=== PATIENT | male | born 1965 | race Caucasian/White ===

== ENCOUNTER → 2020-03-05 13:25 | Outpatient (BNVA) | payer OTHER, SELFPAY | PROVIDERS: PCP Nurse Practitioner; Visit Provider Internal Medicine | DX: K22.4 Dyskinesia of esophagus (principal); Z20.828 Contact with and (suspected) exposure to other viral communicable diseases; Z11.59 Encounter for screening for other viral diseases | CPT/HCPCS: 87635 ==

== ENCOUNTER 2020-03-09 08:50 | Day surgery (SDC) | payer SELFPAY ==
[2020-03-05 13:32] VITALS: BMI 25.7
[2020-03-09 09:07] VITALS: BP 126/89; PULSE 58; RESP 18; TEMP 36.5; O2SAT 97
--- NOTE | 2020-03-09 09:28 | P.ANESASSM_ITS ---
Pre-Anesthetic Assessment Pre-Anesthetic Assessment: Height/Weight: Height 1.83 m Weight 86.183 kg Temp Pulse Resp BP Pulse Ox 97.7 F 58 L 18 126/89 97 03/09/20 09:07 03/09/20 09:07 03/09/20 09:07 03/09/20 09:07 03/09/20 09:07 Preop Diagnosis: esophageal spasm Proposed Procedure: Operation Date: 03/09/20 10:15 Proposed Procedures p EGD 85443 K22.4(Not Applicable) - William Quiroz MD Familial anesthetic complications: none Was Beta Dalia taken within 24 hours: N/A Last intake: Intake Last Liquid Date 03/08/20 Last Liquid Time 20:00 Last Solid Date 03/08/20 Last Solid Time 20:00 Social: Social History: No alcohol and No tobacco Exam: Pre-Anes Outpt Exam: alert, oriented x 3, clear to auscultation bilaterally and regular rate & rhythm Airway: Cervical ROM: WNL MP: 2 Dentition: Full Anesthetic Plan: ASA status: 1 Anesthesia: MAC Risk of > 500 ml blood loss (7ml/kg in children): No PFSH Anesthesia PFSH: Medical History Diverticulosis History of colon polyps Internal hemorrhoids Surgical History History of ankle surgery Left History of appendectomy Several surgeries after due to complications. History of circumcision History of colonoscopy (06/09/19) Repeat in 5 years 06/09/19 History of foot surgery Bilateral Family History Other Diabetes Denies family history of Anesthesia complication Bleeding disorder Social History Smoking and tobacco status: former smoker Alcohol intake: current Alcohol intake frequency: holidays/special occasions o nly Adopted: No Lives independently: Yes Household members: none Housing: House Marital status: / Number of children: 7 Highest education level completed: High School Graduate service: No Current occupational status: employed Pets and animals: Yes History of recent travel: No Current gender identity: Male Data Anesthesia Cardiac Studies: No Data to Display
--- NOTE | 2020-03-09 10:25 | W.PM.OPSUD ---
Surgery/Procedure H&P Update DATE OF PROCEDURE: March 09, 2020 DATE H&P PERFORMED: 02/19/20 H&P UPDATE INFORMATION: I have reviewed H&P completed within last 30 days, I have examined patient prior to procedure and No changes to prior documentation PREOP DIAGNOSIS: esophageal spasm PLANNED PROCEDURE: Operation Date: 03/09/20 10:15 Proposed Procedures p EGD 62958 K22.4(Not Applicable) - William Quiroz MD
[2020-03-09 10:44] VITALS: BP 119/74; PULSE 67; RESP 16; TEMP 36.3; O2SAT 98
--- NOTE | 2020-03-09 10:55 | ANE.PACU2 ---
Inpatient post-anesthesia follow up: Airway intact: Yes Vital signs: Temperature 97.3 F Pulse Rate 67 Respiratory Rate 16 Blood Pressure 119/74 Pulse Oximetry 98 Oxygen Delivery Me thod Nasal Cannula Oxygen Flow Rate 2 Fraction of Inspir ed Oxygen Hydration adequate: Yes Nausea and vomiting: No Mental status: Baseline
[2020-03-09 10:59] VITALS: BP 112/68; PULSE 69; RESP 16; O2SAT 96
[2020-03-09] MEDS: sodium chloride 0.9% 1,000 ML 30 ML IV (11:00)
== END 2020-03-09 11:20 | disposition home or self-care (01) ==
PROVIDERS: PCP Nurse Practitioner; Visit Provider Surgery
PROC: 0DJ08ZZ Inspection of Upper Intestinal Tract, Via Natural or Artificial Opening Endoscopic (ICD-10-PCS; CPT 43235; principal; 2020-03-09 10:15)
DX: K22.4 Dyskinesia of esophagus (principal); K20.9 Esophagitis, unspecified; Z87.891 Personal history of nicotine dependence; K44.9 Diaphragmatic hernia without obstruction or gangrene
CPT/HCPCS: 12345; 43239; 88305; J2704; J7030

== ENCOUNTER → 2020-04-13 10:51 | Outpatient (BNVA) | payer SELFPAY | PROVIDERS: PCP Family Medicine; Visit Provider Specialist | DX: G56.02 Carpal tunnel syndrome, left upper limb (principal); R20.0 Anesthesia of skin; R20.2 Paresthesia of skin | CPT/HCPCS: 95910 ==

== ENCOUNTER → 2020-10-14 09:15 | Outpatient (BNVA) | payer SELFPAY | PROVIDERS: PCP Family Medicine; Visit Provider Nurse Practitioner Family | DX: J02.9 Acute pharyngitis, unspecified (principal) | CPT/HCPCS: 87070; 87880 ==

== ENCOUNTER → 2021-10-06 11:39 | Outpatient (BNVA) | payer SELFPAY | PROVIDERS: PCP Family Medicine; Visit Provider Family Medicine | DX: M25.511 Pain in right shoulder (principal) | CPT/HCPCS: 73030 ==

== ENCOUNTER 2022-03-16 06:00 | Outpatient (RCR) | payer SELFPAY | END 2022-04-07 23:59 | disposition home or self-care (01) | LOC: SPT 06:00 | PROVIDERS: PCP Family Medicine; Visit Provider Family Medicine | DX: M25.511 Pain in right shoulder (principal) | CPT/HCPCS: 97110; 97161 ==

== ENCOUNTER 2022-04-08 06:00 | Outpatient (RCR) | payer SELFPAY | END 2022-05-08 23:59 | disposition home or self-care (01) | LOC: SPT 06:00 | PROVIDERS: PCP Family Medicine; Visit Provider Family Medicine | DX: M25.511 Pain in right shoulder (principal) | CPT/HCPCS: 97110 ==

== ENCOUNTER → 2023-11-02 10:39 | Outpatient (BNVA) | payer MEDICAID, SELFPAY | PROVIDERS: PCP Family Medicine; Visit Provider Family Medicine | DX: R03.0 Elevated blood-pressure reading, without diagnosis of hypertension (principal); M17.10 Unilateral primary osteoarthritis, unspecified knee; G56.03 Carpal tunnel syndrome, bilateral upper limbs | CPT/HCPCS: 80053; 80061; 84439; 84443; 85025 ==

== ENCOUNTER 2024-02-26 19:34 | Emergency (ER) | payer MEDICAID, SELFPAY ==
[2024-02-26 19:39] VITALS: BP 133/84; PULSE 85; RESP 18; TEMP 36.8; O2SAT 97; BMI 22.5
--- NOTE | 2024-02-26 19:52 | XRR_ITS ---
PROCEDURE INFORMATION: Exam: XR Left Knee Exam date and time: 02/26/2024 8:28 PM Age: 59 years old Clinical indication: Swelling, leg or foot; Additional info: Pain/swelling TECHNIQUE: Imaging protocol: Radiologic exam of the left knee. Views: 3 views. COMPARISON: No relevant prior studies available. FINDINGS: Bones/joints: Alignment is normal. Femorotibial joint spaces are preserved. No acute fracture. Moderate patellofemoral osteophytes. No visible joint effusion. Soft tissues: Prepatellar soft tissue edema. XR/XR knee LT 3V* [id number] IMPRESSION: 1. No acute osseous findings. 2. Nonspecific prepatellar soft tissue edema. Prepatellar bursitis not excluded.
[2024-02-26] MEDS: HYDROcodone-acetaminophen 7.5-325 mg Tablet 1 TAB PO (20:37)
[2024-02-26 20:53] LABS: Erythrocyte Sedimentation Rate 2 mm/hr (0-10)
[2024-02-26 20:54] LABS: Basophils % 0.6 %; Eosinophils # 0.1 10^3/uL (0.0-0.8); Eosinophils % 1.4 %; Hematocrit 42.6 % (37-53); Lymphocytes # 1.1 10^3/uL (0.8-4.8); Lymphocytes % 17.8 %; Mean Corpuscular HGB Conc 33.3 g/dL (30-55); Mean Corpuscular Hemoglobin 30.4 pg (27-33); Mean Corpuscular Volume 91.2 fl (82-101); Mean Platelet Volume 8.7 fL (7.4-10.4); Monocytes # 0.7 10^3/uL (0.2-0.9); Monocytes % 10.4 %; Neutrophils # 4.33 10^3/uL (1.8-7.7); Neutrophils % 69.6 %; Nucleated Red Blood Cells % 0 %; Platelet Count 251 10^3/cmm (157-399); Red Blood Count 4.67 10^6/uL (3.85-5.65); Red Cell Distribution Width 12.6 % (12.1-15.1); White Blood Count 6.23 10^3/uL (3.29-11.43)
[2024-02-26 21:11] LABS: Alanine Aminotransferase 21 U/L (0-41); Albumin Level 4.6 g/dL (3.5-5.2); Alkaline Phosphatase 65 U/L (40-130); Anion Gap 11.4 (5-19); Aspartate Amino Transferase 18 U/L (0-40); Blood Urea Nitrogen 12 mg/dL (6-20); C Reactive Protein 10.1 mg/L (0.0-4.9); Calcium 9.7 mg/dL (8.5-10.5); Carbon Dioxide 31 mmol/L (22-29); Chloride 99 mmol/L (98-107); Glomerular Filtration Rate 138.4 mL/min (90-130); Glucose 97 mg/dL (65-115); Lactic Sepsis W/Reflex 0.8 mmol/L (0.5-2.2); Osmolality Calculated 284 mOsm/kg (285-295); Potassium 4.4 mmol/L (3.5-5.1); Sodium 137 mmol/L (136-145); Total Bilirubin 0.5 mg/dL (0.15-1.2); Total Protein 7.6 g/dL (6.6-8.7)
[2024-02-26 22:07] VITALS: BP 139/79; PULSE 81; RESP 16; O2SAT 98
[2024-02-26] MEDS: dexamethasone 10 mg/mL INJ IM (22:08)
--- NOTE | 2024-02-26 23:11 | ED_ITS ---
HPI - Extremity Problem 2 General: Chief complaint: Extremity Injury, Lower Stated complaint: Left knee swelling Time Seen by Provider: 02/26/24 19:45 Source: patient Mode of arrival: ambulatory Limitations: no limitations History of Present Illness: Patient is a 59-year-old male who presents the emergency department complaining of left knee swelling and pain for the past 3 to 4 days. Patient states he has been on his knees a lot for the past few days cleaning his house, and notes steadily increasing symptoms, but was concerned that it is just his left knee and on his right. He states that there are no specific alleviating factors, and it does not necessarily worse with walking but does seem to be worse at the end of the day. He has been taking meloxicam and ibuprofen, not much relief here. Has not tried any ice or other [id number] remedies. No history of previous. He is not reporting any fevers, nausea vomiting, or other systemic signs of illness. He does note the need to be slightly warm to the touch. MD Complaint: joint swelling and joint pain Onset (ago): day(s) Pain Consistency: constant Location: left and knee Radiation: none Relieving factors: nothing Exacerbating factors: nothing Associated symptoms: Reports no associated symptoms; Deny chest pain, fever(s) or rash Related Data Previous Rx's Medication Instructions Recorded fluticasone propionate 50 2 spray intranasal DAILY #16 grams 11/02/23 mcg/actuation nasal spray,suspension (Flonase Allergy Relief) meloxicam 15 mg tablet 15 mg PO DAILY #60 tabs 11/02/23 prednisone 20 mg tablet 60 mg (3 x 20 mg) PO ONCE 5 days 02/26/24 #15 tabs Allergies Allergy/AdvReac Type Severity Reaction Status Date / Time No Known Allergies Allergy Verified 11/02/23 10:04 Review of Systems 2 General: Reports: 10 or more systems reviewed and unremarkable except in HPI and below Const: Denies: fever(s) or chills Card: Denies: chest pain Resp: Denies: dyspnea or productive cough GI: Denies: abdominal pain, nausea, vomiting or diarrhea : Denies: flank pain Musc: Reports: joint pain, joint swelling and joint warmth; Denies: neck pain, back pain, extremity pain, extremity swelling, joint redness, limited range of motion or muscle weakness Skin/Breast: Denies: rash Neuro: Denies: headache(s), numbness in extremities or weakness in extremities PFSH ED 2 PFSH: Medical History Diverticulosis Internal hemorrhoids History of colon polyps Surgical History H/O esophagogastroduodenoscopy (03/09/20) Grade C esophagitis History of ankle surgery Left History of foot surgery Bilateral History of appendectomy Several surgeries after due to complications. History of circumcision History of colonoscopy (06/09/19) Repeat in 5 years 06/09/19 Family History Other Diabetes Denies family history of Anesthesia complication Bleeding disorder Social History Smoking and tobacco/nicotine status: former use of tobacco/nicotine (1PPD x4- 5yrs. quit 1994) Alcohol intake: current Alcohol intake frequency: holidays/special occasions only Substance/Drug Use: never Adopted: No Lives independently: Yes Household members: none Housing: House Marital status: / Number of children: 7 Highest education level completed: High School Graduate service: No Current occupational status: employed Pets and animals: Yes Current gender identity: Male Physical Exam 2 Const: COMMON NORMALS: no acute distress, patient oriented x3, no limitations, healthy appearing, alert and well nourished HENMT: COMMON NORMALS: normocephalic and atraumatic HEAD & SCALP: n ormocephalic and atraumatic Neck/C-Spine: COMMON NORMALS: full ROM, supple and no meningeal signs Resp: COMMON NORMALS: normal respiratory effort, No use of accessory muscles and clear to auscultation bilaterally AUSCULTATION: clear to auscultation bilaterally Cardio: COMMON NORMALS: regular rate and regular rhythm RATE: regular rate RHYTHM: regular rhythm Extremity: COMMON NORMALS: full ROM, capillary refill normal, no joint enlargement and no clubbing, cyanosis or edema NARRATIVE EXTREMITY EXAM: Left knee joint does appear moderately swollen, worse on the medial aspect. Is slightly warm to the touch. No palpable joint effusion at this time but there is tender to palpation diffusely. No joint laxity noted. Pain with extension of the knee. Neuro: COMMON NORMALS: patient oriented x3, moves all extremities, no focal motor deficits and no sensory deficits noted SENSORIUM/ORIENTATION: Yes alert MENINGEAL SIGNS: Yes no meningeal signs Skin: COMMON NORMALS: no rashes or lesions noted GENERAL SKIN EXAM: no rashes or lesions noted Course 2 Vital Signs: Vital signs: Vital Signs Temperature 98.2 F 02/26/24 19:39 Pulse Rate 81 02/26/24 22:07 Respiratory Rate 16 02/26/24 22:07 Blood Pressure 139/79 02/26/24 22:07 Pulse Oximetry 98 02/26/24 22:07 Oxygen Delivery Me thod Room Air 02/26/24 19:39 MDM - Extremity (Nontraumatic) Medical Decision Making Patient arrived with a left knee pain and swelling as well as some warmth over the past few days. Has had direct trauma/contact with both knees while cleaning house recently. His vitals were stable on arrival noted to be afebrile. He had no reports of systemic illness, and though the joint did feel somewhat warm on exam was not overtly hot to the touch and I was not suspicious of a septic joint. I did order an x-ray and labs. The labs were all unremarkable specifically a normal CRP, ESR, lactate, and no leukocytosis. His x-ray did comment on some soft tissue edema that could resemble a prepatellar bursitis, and clinically this does appear to be a bursitis also based on the history he gave me. He is given Jewett here and upon recheck states his pain was a 0. I had conversation with him in regards to reasons to return such that if he does have any systemic illness signs or symptoms to return immediately for further evaluation. At this time I do think it is a simple bursitis and we will treat with steroids and have him follow-up with primary care for reevaluation later this week. He will continue taking meloxicam, wearing compression devices, and elevate and ice the extremity. Patient discharged home at this time. Lab Data 02/26/24 20:48 02/26/24 20:48 Radiology Impressions Knee X-Ray 02/26/24 19:52 IMPRESSION: 1. No acute osseous findings. 2. Nonspecific prepatellar soft tissue edema. Prepatellar bursitis not excluded. Laboratory Results WBC 6.23 10^3/uL (3.29-11.43) 02/26/24 20:48 RBC 4.67 10^6/uL (3.85-5.65) 02/26/24 20:48 Hgb 14.20 g/dL (11.27-16.99) 02/26/24 20:48 Hct 42.6 % (37-53) 02/26/24 20:48 MCV 91.2 fl (82-101) 02/26/24 20:48 MCH 30.4 pg (27-33) 02/26/24 20:48 MCHC 33.3 g/dL (30-55) 02/26/24 20:48 RDW 12.6 % (12.1-15.1) 02/26/24 20:48 Plt Count 251 10^3/cmm (157-399) 02/26/24 20:48 MPV 8.7 fL (7.4-10.4) 02/26/24 20:48 Neut % (Auto) 69.6 % 02/26/24 20:48 Lymph % (Auto) 17.8 % 02/26/24 20:48 Davis % (Auto) 10.4 % 02/26/24 20:48 Eos % (Auto) 1.4 % 02/26/24 20:48 Baso % (Auto) 0.6 % 02/26/24 20:48 Neut # (Auto) 4.33 10^3/uL (1.8-7.7) 02/26/24 20:48 Lymph # (Auto) 1.1 10^3/uL (0.8-4.8) 02/26/24 20:48 Davis # (Auto) 0.7 10^3/uL (0.2-0.9) 02/26/24 20:48 Eos # (Auto) 0.1 10^3/uL (0.0-0.8) 02/26/24 20:48 Baso # (Auto) 0.0 10^3/uL (0.0-0.1) 02/26/24 20:48 Nucleated RBC % (auto) 0 % 02/26/24 20:48 Nucleated RBCs # 0.0 /100WBC 02/26/24 20:48 ESR 2 mm/hr (0-10) 02/26/24 20:48 Sodium 137 mmol/L (136-145) 02/26/24 20:48 Potassium 4.4 mmol/L (3.5-5.1) 02/26/24 20:48 Chloride 99 mmol/L (98-107) 02/26/24 20:48 Carbon Dioxide 31 mmol/L (22-29) H 02/26/24 20:48 Anion Gap 11.4 (5-19) 02/26/24 20:48 BUN 12 mg/dL (6-20) 02/26/24 20:48 Creatinine 0.6 mg/dL (0.7-1.2) L 02/26/24 20:48 GFR Calculation 138.4 mL/min (90-130) H 02/26/24 20:48 Glucose 97 mg/dL (65-115) 02/26/24 20:48 Calculated Osmolality 284 mOsm/kg (285-295) L 02/26/24 20:48 Lactic Acid 0.8 mmol/L (0.5-2.2) 02/26/24 20:48 Calcium 9.7 mg/dL (8.5-10.5) 02/26/24 20:48 Total Bilirubin 0.5 mg/dL (0.15-1.2) 02/26/24 20:48 AST 18 U/L (0-40) 02/26/24 20:48 ALT 21 U/L (0-41) 02/26/24 20:48 Alkaline Phosphatase 65 U/L (40-130) 02/26/24 20:48 C-Reactive Protein 10.1 mg/L (0.0-4.9) H 02/26/24 20:48 Total Protein 7.6 g/dL (6.6-8.7) 02/26/24 20:48 Albumin 4.6 g/dL (3.5-5.2) 02/26/24 20:48 Globulin 3.0 g/dL (1.3-4.6) 02/26/24 20:48 All radiology interpretation(s) finalized by discharge Discharge Plan Discharge Patient Disposition: Home Clinical Impression: Bursitis Condition: Stable Prescriptions: New prednisone 20 mg tablet 60 mg PO ONCE 5 Days Qty: 15 0RF No Action meloxicam 15 mg tablet 15 mg PO DAILY Qty: 60 1RF fluticasone propionate [Flonase Allergy Relief] 50 mcg/actuation spray,suspension 2 spray intranasal DAILY Qty: 16 0RF Rx Instructions: administer into each nostril Discharge Orders: Discharge ED (Routine); Ordered 02/26/24 Ordered By: Favian Hartman Referrals: Bobby Mccall MD [Primary Care Provider] - Discharge Diet: Usual diet Discharge Activity: Limit activity as instructed Patient Instructions: Knee Bursitis (ED) Activity Restrictions/Additional Instructions: Steroids. Please return to the emergency department immediately if you develop any fevers or significant nausea and vomiting. Avoid direct contact and apply compression device for the swelling. Ice to the area. Follow-up with primary care as needed. Coding Level of Care Code ED [employer] Rec[employer]iter for [facility]
== END 2024-02-26 22:08 | disposition home or self-care (01) ==
PROVIDERS: Emergency Provider Physician Assistant; PCP Family Medicine
DX: M71.9 Bursopathy, unspecified (principal); Z87.891 Personal history of nicotine dependence
CPT/HCPCS: 36415; 73562; 80053; 83605; 85025; 85651; 86140; 96372; 99284; J1100

== ENCOUNTER 2024-07-11 11:00 | Outpatient (CLI) | payer MEDICAID, SELFPAY ==
--- NOTE | 2024-07-11 11:00 | CT_ITS ---
WS: [id number] CT ABDOMEN AND PELVIS NONCONTRAST HISTORY: adhesions, RLQ pain. hx of appendectomy TECHNIQUE: Imaging performed through the abdomen and pelvis. Coronal and sagittal reformats are submi tted. All CT scans at [facility] use at least one of these dose optimization techniques: auto mated exposure control; mA and/or kV adjustment per patient size (includes targeted exams where dose is matched to clinical indication); or iterative reconstruction. DLP: 303.36 mGy.cm COMPARISON: None available. Lower thorax: Lung bases are clear. Visualized heart is normal. No hiatal hernia. Liver: Normal size liver. No mass or bile duct dilatation. Gallbladder: Normal gallbladder. No pericholecystic fluid or cholelithiasis. No gallbladder wall thic kening. Pancreas: Normal size and attenuation. Normal pancreatic duct. No pancreatitis or mass. Spleen: Normal size spleen with granulomata. Adrenal glands: Normal. No mass. Right kidney: Normal size kidney. Exophytic cyst from the lower pole measures 4.3 x 3.8 cm. There is a smaller exophytic low-attenuation nodule from the posterior upper pole measuring 10 x 9 mm which is too small to characterize. No renal calcifications or obstruction. Left kidney: Normal size kidney with no mass or hydronephrosis. Aorta: Normal abdominal aorta, no aneurysm or atherosclerosis. No free fluid, intraperitoneal air or significant lymphadenopathy. GI tract: Normal stomach and small bowel. No obstruction. Mild constipation. Prior appendectomy. No c olonic wall thickening. Moderate distal colonic diverticular burden without acute diverticulitis. Abdominal wall: Negative. No hernia. Pelvis: Well-distended urinary bladder. No free fluid or adenopathy. Osseous structures: Unremarkable. CT/CT abdomen pelvis wo con [id number] IMPRESSION: 1. No acute abdominal or pelvic abnormalities. 2. No GI tract obstruction. 3. Moderate sigmoid colon diverticula without acute diverticulitis. 4. Lower pole RIGHT renal cyst measures 4.3 x 3.9 cm. Too small to characteriz e low-attenuation nodule from the superior pole.
== END 2024-07-11 11:07 | disposition home or self-care (01) ==
PROVIDERS: PCP Family Medicine; Visit Provider Family Medicine
DX: K57.90 Diverticulosis of intestine, part unspecified, without perforation or abscess without bleeding (principal); N28.1 Cyst of kidney, acquired; R10.9 Unspecified abdominal pain
CPT/HCPCS: 74176

== ENCOUNTER → 2024-09-10 09:09 | Outpatient (BNVA) | payer MEDICAID, SELFPAY | PROVIDERS: PCP Family Medicine; Visit Provider Nurse Practitioner | DX: G56.03 Carpal tunnel syndrome, bilateral upper limbs (principal) | CPT/HCPCS: 73130 ==

== ENCOUNTER 2024-09-23 05:53 | Day surgery (SDC) | payer MEDICAID, SELFPAY ==
[2024-09-23] VITALS (11 sets, daily range): BP systolic 96–127; BP diastolic 64–101; PULSE 64–81; RESP 11–18; TEMP 36.2–37.1; O2SAT 92–99; BMI 22.5
[2024-09-23] MEDS: sodium chloride 0.9% 1,000 ML 30 ML IV (06:36)
[2024-09-23] MEDS: acetaminophen 1,000 MG/100 ML PIGGYBACK 400 MG IV (06:36)
[2024-09-23] MEDS: CELEcoxib 200 mg Capsule 400 MG PO (06:43)
[2024-09-23] MEDS: gabapentin 300 mg Capsule PO (06:44)
--- NOTE | 2024-09-23 06:44 | ANES.PREANE2 ---
Pre-Anesthetic Assessment Height/Weight: Height 1.83 m Weight 75.296 kg Temp Pulse Resp BP Pulse Ox O2 Del Method 97.6 F 64 17 127/101 97 Room Air 09/23/24 06:15 09/23/24 06:15 09/23/24 06:15 09/23/24 06:15 09/23/24 06:15 09/23/24 06:15 Operation Date: 09/23/24 07:00 Proposed Procedures p Carpal Tunnel Release(Left) - Swapna Valdez MD Familial anesthetic complications: None Was Beta Dalia taken within 24 hours: N/A Was Clonidine taken within 24 hours: N/A Last intake: Intake Last Liquid Date 09/22/24 Last Liquid Time 23:20 Last Solid Date 09/22/24 Last Solid Time 23:00 Social No alcohol and No tobacco Exam alert, oriented x 3, clear to auscultation bilaterally and regular rate & rhythm Airway Mallampati: Class I Dentition: other (missing teeth) Anesthetic Plan ASA status: 1 Anesthesia: General Risk of > 500 ml blood loss (7ml/kg in children): No Medications/Allergies Home Medications ?Medication ?Instructions ?Recorded ?Confirmed ?Last Taken ?Type meloxicam 15 mg tablet 15 mg PO DAILY #90 tabs 05/16/24 09/22/24 09/14/24 Rx fluticasone propionate 50 2 spray intranasal DAILY #16 grams 06/30/24 09/22/24 09/21/24 Rx mcg/actuation nasal spray,suspension (Flonase Allergy Relief) gabapentin 300 mg capsule 300 mg PO DAILY #30 caps 09/01/24 09/22/24 09/22/24 Rx Allergies Allergy/AdvReac Type Severity Reaction Status Date / Time No Known Allergies Allergy Verified 09/10/24 09:26 Current Medications Generic Name Dose Route Start Last Admin Trade Name Freq PRN Reason Stop Dose Admin Sodium Chloride 1,000 mls @ 30 mls/hr 09/23/24 06:15 09/23/24 06:36 Sodium Chloride 0.9% IV 09/24/24 06:14 30 mls/hr .Q24H VICKY Administration PFSH Anesthesia Medical History Tinnitus Diverticulosis Internal hemorrhoids History of colon polyps Surgical History H/O esophagogastroduodenoscopy (03/09/20) Grade C esophagitis History of ankle surgery Left History of foot surgery Bilateral History of appendectomy Several surgeries after due to complications. History of circumcision History of colonoscopy (06/09/19) Repeat in 5 years 06/09/19 Family History Other Diabetes Denies family history of Anesthesia complication Bleeding disorder Social History Smoking and tobacco/nicotine status: unknown if used tobacco/nicotine Alcohol intake: current Alcohol intake frequency: holidays/special occasions only Substance/Drug Use: never Adopted: No Lives independently: Yes Household members: none Housing: House Marital status: / Number of children: 7 Highest education level completed: High School Graduate service: No Current occupational status: employed Pets and animals: Yes Current gender identity: Male Data Anesthesia Cardiac Studies: No Data to Display
--- NOTE | 2024-09-23 07:00 | W.PM.OPSUD ---
Surgery/Procedure H&P Update DATE OF PROCEDURE: September 23, 2024 DATE H&P PERFORMED: 09/10/24 H&P UPDATE INFORMATION: I have reviewed H&P completed within last 30 days, I have examined patient prior to procedure, No changes to prior documentation and H&P is in [facility] [place] [place] EMR on date indicated PREOP DIAGNOSIS: Left Carpal Tunnel Syndrome PLANNED PROCEDURE: Operation Date: 09/23/24 07:00 Proposed Procedures p Carpal Tunnel Release(Left) - Swapna Valdez MD Related Problem List Diagnoses (1) Carpal tunnel syndrome of left wrist:
[2024-09-23] MEDS: ceFAZolin 2,000 mg SDV 2000 MG IVP (07:01)
[2024-09-23] MEDS: BUPivacaine 0.5% INJ 30 mL XX (07:45)
--- NOTE | 2024-09-23 08:05 | PM.OP ---
Operative Report Date of procedure: September 23, 2024 Pre-op diagnosis: Left carpal tunnel syndrome Post-op diagnosis: Left carpal tunnel syndrome Post-op findings: Severe compression across the carpal canal Procedure done: Left carpal tunnel release Implants: None Specimens removed/disposition: None Pathology: None Surgeon: Swapna Valdez MD Bookkeeping Service Sales Agent: None Anesthesia: General (Per LMA, ASA 1) Estimated blood loss (mL): 2 Tourniquet time (min): 19 ( at 250 mmHg) IV fluids (mL): 600 Urine output (mL): 0 (No Vicente) Complications: None Findings: Severe compression across the carpal canal Condition: stable Disposition: PACU (Then return to same-day surgery for discharge to home) Brief History: This 59-year-old gentleman presented to the clinic with complaints of bilateral carpal tunnel syndrome. He had had symptoms for the past few years. He had bilateral upper extremity nerve conduction study prior to his appointment. There was moderately severe entrapment of the left median nerve at the wrist and possible mild entrapment of the right median nerve at the wrist. Ulnar nerves were noted to be normal. After discussion in the office, he wished to proceed with carpal tunnel release. Risks and complications were discussed with him. Consents were signed and questions were answered. Procedure: The patient was brought to the operating theater. General anesthesia was administered per LMA, ASA 1, and this was well-tolerated. The tourniquet was elevated to 250 mmHg for a total tourniquet time of 19 minutes. The patient was also given Ancef 2 g preoperatively. The arm was then prepped and draped with DuraPrep in usual fashion with the arm draped free. A surgical pause was performed. At the time, the surgical pause, we confirmed the site and side of surgery. We also confirmed the patient's identity, appropriate and timely administration of preoperative antibiotics and preoperative surgical markings. An incision was then made along the thenar crease. The incision crossed the wrist joint in a curvilinear fashion. Dissection continued through skin and soft tissues using a scalpel. The palmaris longus was identified along with the transverse carpal ligament. Each of these was released carefully to avoid injury to the median nerve. We were able to dissect gently into the carpal canal which was noted to be quite tight with significant compression across the median nerve. The nerve was visualized and was an hourglass shape with slight purpleish discoloration. The canal was subsequently palpated to assure there was no bony encroachment upon the canal. There was a quite thickened fibrous tissue within the canal, and this was opened longitudinally as well. The canal was then palpated distally and proximally to assure that my small finger was passed easily without impingement. Finding this to be so, attention was directed to closure. The wound was irrigated with ropivacaine plain. It was then closed with 3-0 nylon in an interrupted mattress fashion. Sterile dressing was then placed consisting of Dermabond, OpSite, fluffed fluffs, sterile soft roll, and an Mack wrap. The tourniquet was released after 19 minutes. There were no complications. There were no specimens. The procedure was well tolerated. Plan is the patient will be discharged home. Related Problem List Diagnoses (1) Carpal tunnel syndrome of left wrist:
--- NOTE | 2024-09-23 09:20 | ANE.PACU2 ---
Inpatient post-anesthesia follow up: Airway intact: Yes Vital signs: Temperature 97.8 F Pulse Rate 74 Respiratory Rate 16 Blood Pressure 118/81 Pulse Oximetry 96 Oxygen Delivery Me thod Room Air Oxygen Flow Rate 10 Fraction of Inspir ed Oxygen Hydration adequate: Yes Nausea and vomiting: No Pain level: 1 Mental status: Baseline
== END 2024-09-23 09:20 | disposition home or self-care (01) ==
PROVIDERS: PCP Family Medicine; Visit Provider Specialist
PROC: (CPT 64721; principal; 2024-09-23 07:00)
DX: G56.02 Carpal tunnel syndrome, left upper limb (principal)
CPT/HCPCS: 64721; J0131; J0690; J1100; J2250; J2405; J2704; J3010; J3490; J7030; J9999

== ENCOUNTER 2024-10-21 11:40 | Day surgery (SDC) | payer MEDICAID, SELFPAY ==
[2024-10-21] VITALS (10 sets, daily range): BP systolic 112–146; BP diastolic 67–96; PULSE 51–76; RESP 14–98; TEMP 36.3–36.5; O2SAT 95–99; BMI 22.4
--- NOTE | 2024-10-21 09:35 | ANES.PREANE2 ---
Pre-Anesthetic Assessment Height/Weight: Height 1.83 m Operation Date: 10/21/24 13:00 Proposed Procedures p Carpal Tunnel Release(Right) - Swapna Valdez MD Social Alcohol and Tobacco Exam alert, oriented x 3, clear to auscultation bilaterally and regular rate & rhythm Airway Submandibular: within normal limits Cervical ROM: within normal limits Mallampati: Class II Dentition: chipped CV/HEM Hypertension Musc/skel Osteoarthritis/DJD Anesthetic Plan ASA status: 2 Anesthesia: MAC Medications/Allergies Home Medications ?Medication ?Instructions ?Recorded ?Confirmed ?Last Taken ?Type meloxicam 15 mg tablet 15 mg PO DAILY #90 tabs 05/16/24 10/20/24 10/13/24 Rx fluticasone propionate 50 2 spray intranasal DAILY #16 grams 06/30/24 10/20/24 10/13/24 Rx mcg/actuation nasal spray,suspension (Flonase Allergy Relief) gabapentin 300 mg capsule 300 mg PO DAILY #30 caps 09/01/24 10/20/24 10/13/24 Rx Allergies Allergy/AdvReac Type Severity Reaction Status Date / Time No Known Allergies Allergy Verified 09/10/24 09:26 [facility] Anesthesia Medical History (Updated 10/11/24 @ 17:38 by ARMIDA Arango) Carpal tunnel syndrome of right wrist Tinnitus Diverticulosis Internal hemorrhoids History of colon polyps Surgical History (Updated 10/11/24 @ 17:39 by ARMIDA Arango) S/P carpal tunnel release Date of procedure: September 23, 2024 Pre-op diagnosis: Left carpal tunnel syndrome Procedure done: Left carpal tunnel release Surgeon: Swapna Valdez MD H/O esophagogastroduodenoscopy (03/09/20) Grade C esophagitis History of ankle surgery Left History of foot surgery Bilateral History of appendectomy Several surgeries after due to complications. History of circumcision History of colonoscopy (06/09/19) Repeat in 5 years 06/09/19 Family History Other Diabetes Denies family history of Anesthesia complication Bleeding disorder Social History Smoking and tobacco/nicotine status: never used tobacco/nicotine Alcohol intake: current Alcohol intake frequency: holidays/special occasions only Substance/Drug Use: never Adopted: No Lives independently: Yes Household members: none Housing: House Marital status: / Number of children: 7 Highest education level completed: High School Graduate service: No Current occupational status: employed Pets and animals: Yes Current gender identity: Male Data Anesthesia Cardiac Studies: No Data to Display
[2024-10-21] MEDS: acetaminophen 1,000 MG/100 ML PIGGYBACK 400 MG IV (12:26)
[2024-10-21] MEDS: gabapentin 300 mg Capsule PO (12:30)
[2024-10-21] MEDS: sodium chloride 0.9% 1,000 ML 30 ML IV (12:30)
[2024-10-21] MEDS: CELEcoxib 200 mg Capsule 400 MG PO (12:31)
--- NOTE | 2024-10-21 12:50 | P.HPUD_ITS ---
Surgery/Procedure H&P Update DATE OF PROCEDURE: October 21, 2024 DATE H&P PERFORMED: 10/06/24 H&P UPDATE INFORMATION: I have reviewed H&P completed within last 30 days, I have examined patient prior to procedure, No changes to prior documentation, H&P is in [facility] EMR on date indicated and Risks and benefits of the procedure reviewed PREOP DIAGNOSIS: Right carpal tunnel syndrome PLANNED PROCEDURE: Operation Date: 10/21/24 13:00 Proposed Procedures p Carpal Tunnel Release(Right) - Swapna Valdez MD Related Problem List Diagnoses (1) Carpal tunnel syndrome of right wrist:
[2024-10-21] MEDS: ceFAZolin 2,000 mg SDV 2000 MG IVP (12:55)
--- NOTE | 2024-10-21 12:59 | W.PM.OPSUD ---
Surgery/Procedure H&P Update DATE OF PROCEDURE: October 21, 2024 DATE H&P PERFORMED: 10/06/24 H&P UPDATE INFORMATION: I have reviewed H&P completed within last 30 days, I have examined patient prior to procedure, No changes to prior documentation, H&P is in [facility] EMR on date indicated and Risks and benefits of the procedure reviewed PREOP DIAGNOSIS: Right carpal tunnel syndrome PLANNED PROCEDURE: Operation Date: 10/21/24 13:00 Proposed Procedures p Carpal Tunnel Release(Right) - Swapna Valdez MD Related Problem List Diagnoses (1) Carpal tunnel syndrome of right wrist:
[2024-10-21] MEDS: BUPivacaine 0.5% INJ 30 mL INJECTION (13:23)
--- NOTE | 2024-10-21 14:17 | ANE.PACU2 ---
Inpatient post-anesthesia follow up: Airway intact: Yes Vital signs: Temperature 97.3 F Pulse Rate 61 Respiratory Rate 17 Blood Pressure 123/81 Pulse Oximetry 99 Oxygen Delivery Me thod Room Air Oxygen Flow Rate 6 Fraction of Inspir ed Oxygen Hydration adequate: Yes Nausea and vomiting: No Pain level: controlled Mental status: Baseline
--- NOTE | 2024-10-21 14:23 | PM.OP ---
Operative Report Date of procedure: October 21, 2024 Pre-op diagnosis: Right carpal tunnel syndrome Post-op diagnosis: Right carpal tunnel syndrome Post-op findings: Significant compression across the carpal canal with flattening of the nerve Procedure done: Right carpal tunnel release Implants: None Specimens removed/disposition: None Pathology: None Surgeon: Swapna Valdez MD Learning And Development Consultant: None Anesthesia: General (Per LMA, ASA 2) Estimated blood loss (mL): 1 Tourniquet time (min): 16 (A 250 mmHg) IV fluids (mL): 800 Urine output (mL): 0 (No Vicente) Complications: None Findings: Tight carpal canal with compression on the median nerve Condition: stable Disposition: PACU (Then return to same-day surgery for discharge to home) Brief History: This 59-year-old gentleman presented with complaints of right carpal tunnel syndrome. Previously, he underwent left carpal tunnel release on September 23, 2024. This was well-tolerated. The patient returns today for left carpal tunnel release. Risks and complications of surgery were discussed with him. Consents were signed and questions were answered. There was mild entrapment of the right median nerve at the wrist as per nerve conduction study. Patient wished to proceed and was seen the morning of surgery. Questions were again answered. Procedure: The patient was brought to the operating theater. General anesthesia was administered per LMA, ASA 2, and this was well-tolerated. The tourniquet was elevated to 250 mmHg for a total tourniquet time of 16 minutes. The patient was also given Ancef 2 g preoperatively. The arm was then prepped and draped with DuraPrep in usual fashion with the arm draped free. A surgical pause was performed. At the time, the surgical pause, we confirmed the site and side of surgery. We also confirmed the patient's identity, appropriate and timely administration of preoperative antibiotics and preoperative surgical markings. An incision was then made along the thenar crease. The incision crossed the wrist joint in a curvilinear fashion. Dissection continued through skin and soft tissues using a scalpel. The palmaris longus was identified along with the transverse carpal ligament. Each of these was released carefully to avoid injury to the median nerve. We were able to dissect gently into the carpal canal which was noted to be quite tight with significant compression across the median nerve. The nerve was visualized and was an hourglass shape. The canal was subsequently palpated to assure there was no bony encroachment upon the canal. There was a quite thickened fibrous tissue within the canal, and this was opened longitudinally as well. The canal was then palpated distally and proximally to assure that my small finger was passed easily without impingement. Finding this to be so, attention was directed to closure. The wound was irrigated with ropivacaine plain, and the local anesthetic was injected into the soft tissues as well. It was then closed with 3-0 nylon in an interrupted mattress fashion. Sterile dressing was then placed consisting of Dermabond, OpSite, fluffed fluffs, sterile soft roll, and an Mack wrap. The tourniquet was released after 16 minutes. There were no complications. There were no specimens. The procedure was well tolerated. Plan is the patient will be discharged home. Related Problem List Diagnoses (1) Carpal tunnel syndrome of right wrist:
== END 2024-10-21 15:10 | disposition home or self-care (01) ==
PROVIDERS: PCP Family Medicine; Visit Provider Specialist
PROC: (CPT 64721; principal; 2024-10-21 13:00)
DX: G56.01 Carpal tunnel syndrome, right upper limb (principal); I10 Essential (primary) hypertension; Z79.899 Other long term (current) drug therapy
CPT/HCPCS: 64721; J0131; J0690; J2250; J2704; J3010; J3490; J7030; J9999